=== PATIENT | male | born 1985 | race Caucasian/White ===

== ENCOUNTER 2016-06-05 03:55 | Observation (INO) ==
[2016-06-05 04:10] LABS: MANUAL DIFF NEEDED? NO
--- NOTE | 2016-06-05 04:12 | EKG Report ---
Test Performed on : 06/05/2016 04:03:55 AM Test Reason : Suspected Overdose Blood Pressure : / mmHG Vent. Rate : 075 BPM Atrial Rate : 075 BPM P-R Int : 156 ms QRS Dur : 090 ms QT Int : 392 ms P-R-T Axes : 070 027 042 degrees QTc Int : 437 ms Normal sinus rhythm. with sinus arrhythmia. Normal ECG When compared with ECG of 01-OCT-2011 06:26, No significant change was found Unconfirmed Result
[2016-06-05 04:27] LABS: AGAP 11; BUN 14 mg/dL (8-22); CALCIUM 9.4 mg/dL (8.8-10.2); CHLORIDE 100 mmol/L (98-107); COSMO 278; GOT 28 U/L (10-34); POTASSIUM 3.8 mmol/L (3.5-5.1); SODIUM 139 mmol/L (136-145); TCO2 28 mmol/L (25-35); TOTAL PROTEIN 7.9 g/dL (6.3-8.3)
[2016-06-05 04:46] LABS: BASO% 0.4 % (0.0-0.8); EOS% 3.2 % (0.0-10.0); HEMATOCRIT 43.7 % (42.0-52.0); HEMOGLOBIN 15.1 g/dL (14.0-18.0); IMM GRAN# 0.01 X1000 (0.0-0.04); IMM GRAN% 0.1 % (0.0-0.5); LYMPH# 3.74 X1000 (1.2-3.4); LYMPH% 39.7 % (20.5-51.1); MCH 28.7 PG (27-31); MCHC 34.6 g/dL (33-37); MCV 82.9 FL (81-99); MONO# 0.82 X1000 (0.11-0.59); MONO% 8.7 % (1.7-9.3); MPV 9.9 FL (7.4-10.4); NEUT% 47.9 % (42.2-75.2); PLT 372 X1000 (130-400); RBC 5.27 XMIL (4.7-6.1)
--- NOTE | 2016-06-05 04:46 | EKG Report ---
Test Performed on : 06/05/2016 04:34:58 AM Test Reason : drug overdose Blood Pressure : / mmHG Vent. Rate : 071 BPM Atrial Rate : 071 BPM P-R Int : 166 ms QRS Dur : 096 ms QT Int : 408 ms P-R-T Axes : 045 031 028 degrees QTc Int : 443 ms Normal sinus rhythm. with sinus arrhythmia. Normal ECG When compared with ECG of 05-JUN-2016 04:03, (Unconfirmed) No significant change was found Unconfirmed Result
--- NOTE | 2016-06-05 04:47 | PROVIDER DOCUMENTATION ---
[id number] Abuse/Overdose - General Chief Complaint: Overdose Stated Complaint: UNRESPONIVENESS Time Seen by Provider: 06/05/16 04:34 Source: patient Allergies/Adverse Reactions: Allergies Allergy/AdvReac Type Severity Reaction Status Date / Time No Known Allergies Allergy Verified 04/01/14 17:10 Home Medications: Home Medication List Medication Instructions Recorded Confirmed Last Taken Type NK [No Home Medications] 06/05/16 06/05/16 Unknown History - History of Present Illness-Drug/Alcohol Nature of Presenting Problem: SHOT UP HEROIN 30 MINUTES PRIOR TO ARRIVAL IN HIS NECK This episode of drinking or use began:: 1/2 hour ago Severity: reports: mild Situational problems related to:: reports: N/A Psychiatric Complaints: reports: anxiety. denies: suicidal ideation Associated Symptoms: reports: anxiety Any injuries associated with this episode of intoxication?: No Similar Symptoms Previously?: Yes Recently seen or treated by another doctor?: No - Substance Abuse Substance Use: reports: other (HEROIN) - Overdose Intentional drug overdose?: Yes Suicide Risk Assessment: male sex, depressed, drug or ETOH abuse, organized plan Clinician's estimation of suicide risk?: uncertain risk Review of Systems - Adult - REVIEW OF SYSTEMS - ADULT Constitutional: reports: no symptoms reported Eyes: reports: no symptoms reported Ears, Nose, Mouth & Throat: reports: no symptoms reported Cardiovascular: reports: no symptoms reported Respiratory: reports: no symptoms reported Gastrointestinal: reports: no symptoms reported Genitourinary: reports: no symptoms reported Musculoskeletal: reports: no symptoms reported Integumentary: reports: no symptoms reported Neurological: reports: no symptoms reported Psychiatric: reports: no symptoms reported Endocrine: reports: no symptoms reported Hematologic/Lymphatic: reports: no symptoms reported Allergic/Immunologic: reports: no symptoms reported Past History - Adult - PAST MEDICAL HISTORY-ADULT Review of Records: reports: Nursing Assessment Review, Medications Reviewed, Social history reviewed & non-contributory. Major Childhood Illnesses: reports: denies history Cardiovascular: reports: denies history Respiratory: reports: denies history Gastrointestinal: reports: denies history Obstetrical/Gynecological: reports: denies history Genitourinary: reports: denies history Musculoskeletal: reports: denies history Neurological: reports: denies history Endocrine/Immune: reports: denies history Other Conditions: reports: denies history - FAMILY HISTORY Family History: reviewed, not pertinent Physical Exam-General - PHYSICAL EXAM-ADULT Initial Vital Signs Reviewed: Yes - CONSTITUTIONAL General Appearance: mild distress - EYES Eyes: PERRL/EOMI, pink conjunctivae - HEAD, EARS, NOSE, MOUTH & THROAT HENMT: normocephalic/atraumatic, moist mucous membranes, normal ENT inspection, TMs normal, pharynx normal - NECK Neck: non-tender, full range of motion - RESPIRATORY Respiratory: lungs clear - CARDIOVASCULAR Cardiovascular: regular rate, rhythm - GASTROINTESTINAL (ABDOMEN) Abdominal Exam: soft - LYMPHATIC Lymphatic: no adenopathy - MUSCULOSKELETAL Back Exam: normal inspection Extremity: normal range of motion - SKIN Integumentary: normal color, normal turgor - NEUROLOGIC Neurologic: grossly normal - PSYCHIATRIC Psych/Mental Status: oriented x 3 Progress - PLAN OF CARE/RESULTS Progress/Plan/Lab Results: Vital Signs - 8 hr 06/05/16 04:06 06/05/16 04:10 06/05/16 05:55 Temperature 98.2 F Pulse Rate 72 72 70 Respiratory Rate 18 18 12 Blood Pressure 145/93 145/93 120/86 O2 Sat by Pulse Oximetry 96 100 99 06/05/16 06:04 Temperature 97.4 F L Pulse Rate Respiratory Rate Blood Pressure O2 Sat by Pulse Oximetry Laboratory Results - last 24 hr 06/05/16 06/05/16 06/05/16 04:00 04:00 04:15 WBC 9.42 RBC 5.27 Hgb 15.1 Hct 43.7 MCV 82.9 MCH 28.7 MCHC 34.6 RDW Std Deviation 12.6 Plt Count 372 MPV 9.9 Immature Gran % (Auto) 0.1 Neut % (Auto) 47.9 Lymph % (Auto) 39.7 [place] % (Auto) 8.7 Eos % (Auto) 3.2 Baso % (Auto) 0.4 Immature Gran # (Auto) 0.01 Neut # (Auto) 4.51 Lymph # (Auto) 3.74 H [place] # (Auto) 0.82 H Eos # (Auto) 0.30 Baso # (Auto) 0.04 Specimen Type Sample Site pH pCO2 pO2 HCO3 Base Excess Oxyhemoglobin ABG O2 Sat (Calculated) ABG O2 Saturation ABG Carboxyhemoglobin ABG Methemoglobin Jose Test A-a O2 Difference Total Hemoglobin Lactate Liter Flow Blood Gas Modality FiO2 % Sodium 139 Potassium 3.8 Chloride 100 Carbon Dioxide 28 Anion Gap 11 BUN 14 Creatinine 1.1 Estimated GFR/1.73 m2 > 60 BUN/Creatinine Ratio 13 Glucose 101 Calculated Osmolality 278 Calcium 9.4 Total Bilirubin 0.40 AST 28 ALT Not Reportable Alkaline Phosphatase Not Reportable Total Protein 7.9 Albumin Not Reportable Globulin Not Reportable Albumin/Globulin Ratio Not Reportable Salicylates Not Reportable Urine Opiates Screen PRESUMPTIVE POSITIVE A Ur Oxycodone Screen NONE DETECTED Urine Methadone Screen NONE DETECTED Acetaminophen Not Reportable Ur Barbituates Screen NONE DETECTED Ur Tricyclics Screen NONE DETECTED Ur Phencyclidine Scrn NONE DETECTED Ur Amphetamines Screen PRESUMPTIVE POSITIVE A U Methamphetamines Scrn PRESUMPTIVE POSITIVE A Urine MDMA Screen PRESUMPTIVE POSITIVE A U Benzodiazepines Scrn NONE DETECTED Urine Cocaine Screen NONE DETECTED U Cannabinoids Screen NONE DETECTED 06/05/16 05:38 WBC RBC Hgb Hct MCV MCH MCHC RDW Std Deviation Plt Count MPV Immature Gran % (Auto) Neut % (Auto) Lymph % (Auto) [place] % (Auto) Eos % (Auto) Baso % (Auto) Immature Gran # (Auto) Neut # (Auto) Lymph # (Auto) [place] # (Auto) Eos # (Auto) Baso # (Auto) Specimen Type ARTERIAL Sample Site R RADIAL pH 7.43 pCO2 51 H* pO2 119 H HCO3 31.2 H Base Excess 8.1 H Oxyhemoglobin 95.0 ABG O2 Sat (Calculated) 17.0 ABG O2 Saturation 100.3 H ABG Carboxyhemoglobin 3.90 H ABG Methemoglobin 1.4 Jose Test YES A-a O2 Difference 17.0 Total Hemoglobin 12.6 Lactate 0.60 Liter Flow 2.0 Blood Gas Modality [place] FiO2 % 28.0 Sodium Potassium Chloride Carbon Dioxide Anion Gap BUN Creatinine Estimated GFR/1.73 m2 BUN/Creatinine Ratio Glucose Calculated Osmolality Calcium Total Bilirubin AST ALT Alkaline Phosphatase Total Protein Albumin Globulin Albumin/Globulin Ratio Salicylates Urine Opiates Screen Ur Oxycodone Screen Urine Methadone Screen Acetaminophen Ur Barbituates Screen Ur Tricyclics Screen Ur Phencyclidine Scrn Ur Amphetamines Screen U Methamphetamines Scrn Urine MDMA Screen U Benzodiazepines Scrn Urine Cocaine Screen U Cannabinoids Screen Orders Category Date Time Status Admit - [facility] Routine AdmDCTranf 06/05/16 05:58 Ordered Activity - Strict Bedrest ORDERED Care 06/05/16 05:58 Active Call Admitting on Arrival AT ADMISSION Care 06/05/16 06:01 Active Cardiac Monitoring DIRECTED Care 06/05/16 04:04 Active Finger Stick Blood Sugar (ED) DIRECTED Care 06/05/16 04:04 Active Mini Cath [Straight Catheterization] ORDERED Care 06/05/16 04:27 Active Neurological Check q2h Care 06/05/16 05:58 Active Saline Loc DIRECTED Care 06/05/16 04:04 Active Vital Signs Order ARRIVAL TO ROOM Care 06/05/16 05:58 Active Regular Diet Diet 06/05/16 06:05 Active ABG [RESP] Routine Lab 06/05/16 05:38 Completed ACETAMINOPHEN [TDM] Stat Lab 06/05/16 04:00 Completed ALCOHOL BLOOD Stat Lab 06/05/16 04:00 Received CBC WITH ELECTRONIC DIFF [HEME] Stat Lab 06/05/16 04:00 Completed COMPREHENSIVE METABOLIC PANEL [CHEM] Stat Lab 06/05/16 04:00 Completed SALICYLATES [TDM] Stat Lab 06/05/16 04:00 Com[address] DRUG SCREEN [address] Stat Lab 06/05/16 04:15 Completed 0.9% Sodium Chloride Inj [Ns] 1,000 ml Med 06/05/16 05:58 Active IV 150 mls/hr Naloxone [Narcan] Med 06/05/16 05:40 Discontinued 0.4 mg .ROUTE .STK-MED ONE Naloxone [Narcan] Med 06/05/16 05:39 Discontinued 0.4 mg IV NOW ONE Pulse Oximetry Stat Oth 06/05/16 04:04 Active Telemetry [OM.EQ] Routine Oth 06/05/16 05:58 Active EKG [EKG] Stat Ther 06/05/16 04:04 Draft EKG [EKG] Stat Ther 06/05/16 04:36 Draft Result Diagrams: 06/05/16 04:00 06/05/16 04:00 - EKG 1 Time of EKG reading by physician:: 05:07 EKG Read and Signed by:: Jayce Tapia EKG Interpretation (*Must complete 3 of following elements*): Normal Rate: 75 Rhythm: SINUS [place]: normal QRS: normal [place] Interval: normal ST Wave: normal 2 Time of EKG reading by physician:: 05:07 EKG Read and Signed by:: Jayce Tapia EKG Interpretation (*Must complete 3 of following elements*): Normal Rate: 71 Rhythm: SINUS [place]: normal QRS: normal [place] Interval: normal ST Wave: normal Prior EKG Comparison: unchanged from prior Departure - Departure Time of Disposition Decision: 06:06 DIAGNOSIS: Overdose Qualifiers: Encounter type: initial encounter Injury intent: undetermined intent Qualified Code(s): T50.904A - Poisoning by unspecified drugs, medicaments and biological substances, undetermined, initial encounter Disposition: ADMITTED INPATIENT 09 Certified Medical Emergency: Emergent Condition: Stable Referrals and Follow-Ups: None,PCP [Primary Care Provider] -
[2016-06-05 04:52] LABS: UR AMPHETAMINES QUAL PRESUMPTIVE POSITIVE (NONE DETECT); UR BARBITUATES QUAL NONE DETECTED (NONE DETECT); UR BENZODIAZEPIN QUAL NONE DETECTED (NONE DETECT); UR CANNABINOIDS QUAL NONE DETECTED (NONE DETECT); UR COCAINE QUAL NONE DETECTED (NONE DETECT); UR MDMA QUAL PRESUMPTIVE POSITIVE (NONE DETECT); UR METHADONE QUAL NONE DETECTED (NONE DETECT); UR METHAMPHETAMINE QUAL PRESUMPTIVE POSITIVE (NONE DETECT); UR OPIATES QUAL PRESUMPTIVE POSITIVE (NONE DETECT); UR OXYCODONE QUAL NONE DETECTED (NONE DETECT); UR PCP QUAL NONE DETECTED (NONE DETECT); UR TCA QUAL NONE DETECTED (NONE DETECT)
[2016-06-05] MEDS ORDERED: NARCAN IV ONE (05:39)
[2016-06-05] MEDS ORDERED: NARCAN ONE (05:40)
[2016-06-05 05:55] LABS: BE 8.1 mmoll (-3.0-3.0); BLOOD TYPE ARTERIAL; DRAW SITE R RADIAL; METHB 1.4 % (0.0-1.5); PO2(98.6) 119 mmHg (60-100); SAMPLE BLOOD; SAO2 100.3 % (95.0-100.0); THB 12.6 g/dL (11.5-17.4); pH(98.6) 7.43 (7.35-7.45)
[2016-06-05 05:58] LABS: ALLEN TEST YES; MODALITY CANNULA; PCO2(98.6) 51 mmHg (35-45)
[2016-06-05] MEDS ORDERED: NS 1,000 ML IV ONE (05:58)
[2016-06-05 06:31] LABS: ACETAMINOPHEN < 1.2 ug/mL (10-30); ALBUMIN 4.4 g/dL (3.5-5.0); ALKALINE PHOSPHATASE 66 U/L (32-122); GPT 43 U/L (10-44)
[2016-06-05 11:35] VITALS: BP 128/71
--- NOTE | 2016-07-03 17:54 | HISTORY AND PHYSICAL ---
CHIEF COMPLAINT: Unresponsive. HISTORY OF PRESENT ILLNESS: This is a 30-year-old male, who presented to the emergency room by private vehicle after being found unresponsive. At the time of interview, the patient is very sleepy. He does rouse to verbal stimuli, then drifts back to sleep. He will follow commands. He will answer questions. According to the chart, the patient shot up heroin 30 minutes prior to arrival via his neck. He does have a history of meth and heroin use and abuse with a history of drug overdose secondary to heroin. On arrival, he did have a room air saturation of 91 with respirations it looks like about 10. He was given Narcan along with fluid bolus to which he did respond. Respirations increased. He did become more awake and he was admitted to ICU for further evaluation and treatment. Of note, urine drug screen was positive for opiates, amphetamines, methamphetamines and Ecstasy. PAST MEDICAL HISTORY: Illicit drug use and abuse, prior overdose. PAST SURGICAL HISTORY: Tonsillectomy, right elbow surgery. SOCIAL HISTORY: He smokes a pack a day. He does have polysubstance abuse including meth and heroin. ALLERGIES: No known drug allergies. HOME MEDICATIONS: Denies. LABS: WBC is 9.4, with a hemoglobin of 15.1, hematocrit 43.7, and platelets of 372. Chemistry: Sodium is 139, potassium 3.8, BUN 14, creatinine 1.1 with a glucose of 101. Blood gas: pH was 7.43 with a pCO2 of 51, pO2 of 119, and a bicarb of 31.3. This was on 2 L nasal cannula. ASSESSMENT AND PLAN: 1. Polysubstance drug overdose with reported meth and heroin, with a urine drug screen positive for opiates, amphetamines, methamphetamines and MDMA. 2. Respiratory. 3. Tobacco use and abuse. The patient was admitted to ICU from the emergency room. He is much more awake. He does doze at intervals. He is cooperative. We well continue with IV hydration, supplemental oxygen. Will feed the patient, let him get up out of bed, sit in a chair and check his neurologic checks. Check his mental status. Parents are at the bedside. They do state that the patient does have a history of drug overdose and drug abuse. This has been present for many years. He refuses any help. At present, he refuses any counseling or assistance with tobacco cessation or drug use cessation. We will continue to monitor. Hopefully, the patient will wake up and can be discharged later today. Dictated by NOLA Deluca for Blayne Hicks MD cc: NOLA Deluca MD
--- NOTE | 2016-07-03 22:05 | DISCHARGE SUMMARY ---
ADMISSION DATE: 06/05/2016 DISCHARGE DATE: 06/05/2016 DIAGNOSES: 1. Polysubstance overdose, with heroin, methamphetamines, and MDMA. 2. Tobacco use and abuse. HOSPITAL COURSE: Mr. Alex was brought in by private vehicle after being found unresponsive, reportedly shooting up heroin in a neck vein prior to coming to the emergency room. He was obtunded, but he was able to maintain his airway. He was given Narcan, as well as IV hydration. He was admitted to the ICU. He was awake. He was cooperative. He did eat lunch. He was able to get up, walk around the room, with vital signs, respiratory status stable. DISCHARGE PHYSICAL EXAMINATION: Cardiovascular: Regular rate and rhythm. S1, S2 appreciated. Pulmonary: Breath sounds clear, with no increased work of breathing noted. Gastrointestinal: Abdomen is soft, nontender, nondistended. Bowel sounds in all 4 quadrants. Neurologic: Alert and orient x3. Cranial nerves 3-10 grossly intact. Extremities: No clubbing, cyanosis, or edema. Calves nontender, and pulses palpable x4. Discharge Vital Signs: Blood pressure 128/71, heart rate 70, respirations 18, temperature 98.7, with room air saturations of 98%. DISCHARGE ACTIVITY: As tolerated. DISCHARGE DIET: Regular. DISCHARGE INSTRUCTIONS: Once again, I did attempt to discuss with the patient smoking cessation and illicit drugs cessation. He stated he had no intention of stopping. He did not want to have the materials, nor discusses cessation. He was discharged home in stable condition with his parents. TIME SPENT: This is a greater than 30 minute discharge. Dictated by NOLA Deluca for Blayne Hicks MD cc: NOLA Deluca MD
== END 2016-06-05 12:46 | disposition home or self-care (01) ==
LOC: P.ICU 03:55 → P.ED 03:55 → SUATTDRO 06:16
PROVIDERS: ATTEND Family Medicine